=== PATIENT | male | born 1990 | race Two or more races ===

== ENCOUNTER 2021-06-06 18:11 | Emergency (ER) | payer MEDICAID, OTHER ==
[~2021-06-06] VITALS: Ht 182.9 cm; Wt 113.4 kg
[2021-06-06 18:16] VITALS: BP 154/101
== END 2021-06-07 01:38 | disposition left against medical advice (07) ==
LOC: ER 18:14
DX: R11.2 Nausea with vomiting, unspecified (principal); R19.7 Diarrhea, unspecified; Z53.21 Procedure and treatment not carried out due to patient leaving prior to being seen by health care provider

== ENCOUNTER 2021-07-23 01:13 | Emergency (ER) | payer OTHER ==
[~2021-07-23] VITALS: Ht 182.9 cm; Wt 113.4 kg
[2021-07-23 01:19] VITALS: BP 154/106
== END 2021-07-23 03:31 | disposition left against medical advice (07) ==
LOC: ER 01:16
DX: J06.9 Acute upper respiratory infection, unspecified (principal)